=== PATIENT | male | born 1950 ===

== ENCOUNTER 2023-06-10 07:38 | Outpatient (CLI) | payer MEDICARE, OTHER ==
--- NOTE | 2023-06-10 13:31 | XRAY Report ---
PROCEDURE: Chest 2 View X-Ray INDICATIONS: CHRONIC COUGH TECHNIQUE: 2 views of the chest were acquired. COMPARISON: None. FINDINGS: Surgical changes and devices: None. Lungs and pleura: No pleural effusions or pneumothorax. Lungs are clear. Mediastinum: Mediastinal contours appear normal. Heart size is normal. Bones and chest wall: No suspicious bony lesions. Overlying soft tissues appear unremarkable. IMPRESSION: No acute cardiopulmonary process. Reviewed by: Rubina Tavarez MD on 06/10/2023 1:30 PM PDT Approved by: Rubina Tavarez MD on 06/10/2023 1:30 PM PDT Station ID: [id number]
[2023-06-10 15:08] LABS: BASOPHILS % (AUTO) 0.9 %; EOSINOPHILS # (AUTO) 0.3 10^3/uL (0.0-0.7); HCT - HEMATOCRIT 49.3 % (42.0-52.0); HGB - HEMOGLOBIN 16.1 g/dL (14.0-18.0); LYMPHOCYTES # (AUTO) 1.6 10^3/uL (1.5-3.5); LYMPHOCYTES % (AUTO) 37.2 %; MEAN CORPUSCULAR HEMOGLOBIN 30.7 pg (27.0-31.0); MEAN CORPUSCULAR HGB CONC 32.7 g/dL (32.0-36.0); MEAN CORPUSCULAR VOLUME 94.1 fL (80.0-94.0); MEAN PLATELET VOLUME 10.8 fL (7.4-11.4); MONOCYTES # (AUTO) 0.5 10^3/uL (0.0-1.0); MONOCYTES % (AUTO) 11.6 %; NEUTROPHILS # (AUTO) 1.9 10^3/uL (1.5-6.6); NEUTROPHILS % (AUTO) 44.1 %; PLT - PLATELET COUNT 236 10^3/uL (130-450); RED BLOOD COUNT 5.24 10^6/uL (4.70-6.10); RED CELL DISTRIBUTION WIDTH 13.2 % (12.0-15.0); WHITE BLOOD COUNT 4.3 x10^3/uL (4.8-10.8)
[2023-06-10 15:09] LABS: ESTIMATED AVERAGE GLUCOSE 117 mg/dL (70-100); HEMOGLOBIN A1c% 5.7 % (4.27-6.07)
[2023-06-10 15:27] LABS: ALBUMIN/GLOBULIN RATIO 1.4 (1.0-2.2); ALKALINE PHOSPHATASE 97 IU/L (42-121); ALT ALANINE AMINOTRANSFERASE 13 IU/L (10-60); AST ASPARTATE AMINOTRANSFERASE 18 IU/L (10-42); BILIRUBIN,TOTAL 0.6 mg/dL (0.2-1.0); BUN - BLOOD UREA NITROGEN 20 mg/dL (6-20); CALCIUM 9.1 mg/dL (8.5-10.3); CARBON DIOXIDE - CO2 30 mmol/L (21-32); CHLORIDE 105 mmol/L (101-111); CHOL/HDL RATIO 4.1 (<5.0); CHOLESTEROL 232 mg/dL; CREATININE 0.9 mg/dL (0.6-1.3); GFR - MDRD 82 (>89); GLUCOSE 91 mg/dL (74-104); HDL CHOLESTEROL 56 mg/dL; LDL CHOLESTEROL,CALCULATED 144 mg/dL; LDL/HDL RATIO 2.6 (<3.6); POTASSIUM 4.2 mmol/L (3.5-4.5); SODIUM 138 mmol/L (135-145); TOTAL PROTEIN 6.8 g/dL (6.4-8.9); TRIGLYCERIDES 162 mg/dL (48-352); VLDL CHOLESTEROL 32 mg/dL
== END 2023-06-10 07:39 | disposition home or self-care (01) ==
LOC: DI.S 07:38
PROVIDERS: ATTEND Internal Medicine
DX: R09.82 Postnasal drip (principal); R05.3 Chronic cough; R35.1 Nocturia; Z13.220 Encounter for screening for lipoid disorders; Z13.1 Encounter for screening for diabetes mellitus; G47.30 Sleep apnea, unspecified
CPT/HCPCS: 36415; 80053; 80061; 83036; 83721; 84153; 85025

== ENCOUNTER 2023-07-06 14:44 | Outpatient (CLI) | payer MEDICARE, OTHER ==
--- NOTE | 2023-07-06 15:45 | Sleep Patient Instructions ---
Sleep Center Visit Summary - Patient Visit Information Reason for Visit: Initial consult for evaluation of sleep disordered breathing and other sleep issues. - Patient Instructions Instructions Attached: Sleep Study, Sleep Clinic Visit, Sleep Study Home Monitor Additional Instructions: You will be completing a sleep study, either an in-lab polysomnography (PSG) or home sleep study (HST). You will follow-up in the sleep care office after the sleep study is completed to hear the results and talk about therapy, if needed. You will be called by our office staff to schedule this appointment, but you may contact us with any questions. - Clinic Information Contact: [facility] [address] [place] [address] [email or web address] T: [phone]
--- NOTE | 2023-07-06 15:50 | SLEEP CARE CONSULTATION ---
Information from patient questionnaire entered by Alondra Frey. I have reviewed and concur with the information entered by Alondra Frey. This document represents the service I personally performed and the decisions made by me, Karen Sutton ARNP. History of Present Illness Service Date and Time: 07/06/2023 1444 Reason for Visit: New patient Chief Complaint: reports: Unrefreshed sleep, Excessive daytime sleepiness, Observed pauses in breathing, Fatigue, Frequent awakenings at night Date of Onset: 6YRS Usual bedtime: 10-11PM Time it takes to fall asleep: LESS THAN 5MINS Snores at night: No (don't know) Observed to quit breathing while asleep: Yes Number of times waking at night: 2-4 Reasons for waking at night: reports: Gasping for air, Bathroom, Other (HEART RACING). denies: Choking, Snoring Toss, Turn, or Twitch while sleeping: Yes Recalls having dreams: Yes Usually gets out of bed at: 7-8AM Feels refreshed in the morning: No Morning headache: No Sleepy or fatigued during the day: Yes Ever fallen asleep while driving: Yes (drowsy driving; no accidents) Takes day naps: Yes (4-5 times a week; 15-60 minutes, sometimes 90 mins) Dreams during day naps: Yes Prior sleep studies: No Additional HPI information: I had the pleasure of seeing BIJAL LEARNED today regarding the possibility of him having a sleep disorder. His current complaints are unrefreshed sleep, excessive daytime sleepiness, observed pauses in breathing, fatigue and frequent night awakenings. He states a friend notice 3-4 years ago told him that he stopped breathing for 30 seconds and gasping right after. He states he thinks he sleeps deeply, because he is always dreaming when he wakes up. He has not been told that he snores. He is single and sleeps alone. He states he is tired through the day. He does not wake up feeling rested. He states that sometimes when he wakes up at night his heart seems to be "racing". He saw a street light servicer supervisor who told him he was fine. - Parasomnia Symptoms Ever been unable to move upon waking from sleep: No Walks in sleep: No Talks in sleep: Yes (when younger) Ever acted out dreams in sleep: No Ever felt weak in the knees when startled or emotional: No Bothered by creepy, crawly, restless sensations in legs: No Problems with memory or concentration: Yes (difficult to remember names at times; concentration worse when tired) Subjective Initial [place] Sleepiness Scale score: 11 (07/01/23) Past Medical History Past Medical History: reports: Other (rotator cuff surgery in 2004) Social History The patient's occupation is a RE. Patient is Single and lives in [place]. Have you smoked in the past 12 months: No Alcohol use: Yes Alcohol amount and frequency: 1 GLASS 2-3TIMES PER year Caffeine use: No Family History Family history of sleep disordered breathing: No Allergies and Home Medications Known drug allergies: No Drug allergies reviewed: Yes Home medication list reviewed: Yes Allergy and home medication list: Home Medications Medication Instructions Recorded Confirmed Last Taken Type Ascorbic Acid/Ascorbate Sodium See Rx Instructions .ROUTE .COMPLEX 07/05/23 07/06/23 Unknown History [Vitamin C 500 mg Tablet Chew] Cholecalciferol (Vitamin D3) See Rx Instructions .ROUTE .COMPLEX 07/05/23 07/06/23 Unknown History [Vitamin D3] Zinc Gluconate [Zinc] See Rx Instructions .ROUTE .COMPLEX 07/05/23 07/06/23 Unknown History Review of Systems Weight gain over past 5 years: 3-4 Cardiovascular: reports: palpitations, irregular heart rate or pulse. denies: high blood pressure Respiratory: reports: shortness of breath, chronic cough Gastrointestinal: denies: heartburn Urinary: reports: frequency, urgency Neurological: denies: headaches Psychiatric: denies: anxiety, depression Ear/Nose/Throat: reports: wisdom teeth removed. denies: tonsillectomy Endocrine: reports: sluggishness, increased urination. denies: thyroid disease Musculoskeletal: reports: back pain Immunologic: denies: allergies to food or environment Physical Exam Vital signs obtained and entered by: ALONDRA Jeffrey MA Blood Pressure: 120/76 (07/06/23) Cuff size: regular Heart Rate: 71 O2 Saturation: 98 Height: 5 ft 10.5 in Weight: 175 lb Body Mass Index: 24.7 BMI Classification: Normal Neck circumference: 15.5 Mouth and throat: narrow oropharynx Soft palate: long Hard palate: normal Uvula: normal Uvula visualization: 25% Mallampati Class III Tongue: normal in size Tonsils: small Neck: normal w/o lymphadenopathy or thyromegaly Heart: regular rate and rhythm Lungs: clear bilaterally Impression and Plan 1. Suspected Obstructive Sleep Apnea-Hypopnea Syndrome, as suggested by a history of observed cessation of breath while asleep, gasping or choking in sleep, frequent awakening during the night, unrefreshed sleep, cognitive impairment, and excessive daytime sleepiness. Narrow oropharynx and obesity are common predisposing factors for obstructive sleep apnea-hypopnea syndrome. I recommend proceeding to polysomnography to confirm the diagnosis and to assess severity. If the patient has significant sleep disordered breathing, a manual CPAP titration study will also be performed to find the optimal treatment pressure. I informed the patient of what the sleep studies involve and after s ome discussion, obtained agreement to proceed. The pathophysiology of obstructive sleep apnea-hypopnea syndrome was discussed with the patient and health risks of cardiovascular and cerebrovascular disease if not treated. Risks of drowsy driving discussed in detail and patient advised to avoid long distance driving and to gizzard puller at the first sign of drowsiness. Patient agreed to plan. * Schedule polysomnography. * Avoid long distance driving or driving when feeling sleepy. * Avoid alcohol, sedative and muscle relaxant around bedtime. * Review instructions provided by trained office staff on how to prepare for the sleep study. * Return for follow-up after sleep study completed. Visit Type: In Office Time Spent with Patient (minutes): 33 Provider Statement: I spent 100% of the Face to Face Visit with the patient with greater than 50% spent counseling the patient and coordination of care.
[2023-07-06 15:51] VITALS: BP 120/76; O2SAT 98
== END 2023-07-06 14:45 | disposition home or self-care (01) ==
LOC: SC 14:44
PROVIDERS: ATTEND Nurse Practitioner Family
DX: G47.10 Hypersomnia, unspecified (principal); R53.83 Other fatigue; G47.8 Other sleep disorders; R06.81 Apnea, not elsewhere classified
CPT/HCPCS: 99203; G0463; 99212

== ENCOUNTER 2023-08-26 20:27 | Outpatient (CLI) | payer MEDICARE, OTHER | END 2023-08-26 20:28 | disposition home or self-care (01) | LOC: SC 20:27 | PROVIDERS: ATTEND Nurse Practitioner Family | DX: G47.33 Obstructive sleep apnea (adult) (pediatric) (principal) | CPT/HCPCS: 95810 ==

== ENCOUNTER 2023-09-02 09:00 | Outpatient (CLI) | payer MEDICARE, OTHER ==
--- NOTE | 2023-09-02 09:15 | SLEEP CARE CONSULTATION ---
Information from patient questionnaire entered by Sheridan Wade. I have reviewed and concur with the information entered by Sheridan Wade. This document represents the service I personally performed and the decisions made by , Karen Sutton ARNP. History of Present Illness Service Date and Time: 09/02/2023 0900 Initial [place] Sleepiness Scale score: 11 (07/01/23) Current [place] Sleepiness Scale score: 13 Additional HPI information: BIJAL GRIFFITHS returns via video appointment for follow up and results of the recently performed polysomnography. The sleep study showed very severe obstructive sleep apnea with an average AHI of 65.1 and nick oxygen saturation of 86%. I explained the pathophysiology behind obstructive sleep apnea. We then spent quite a bit of time discussing different treatment options. For mild obstructive sleep apnea, surgery and oral appliance are alternatives to nasal CPAP therapy but in moderate or severe cases, nasal CPAP is the most effective and reliable treatment. I reviewed the impact of weight changes on sleep apnea and strongly recommended losing weight. After some discussion, the patient opted to go with the nasal CPAP therapy. Nasal autoCPAP set at 5-20 cmH20 will be ordered with rationale explained. A manual titration study will be ordered if unable to find optimal pressure with office adjustments. I explained how CPAP machine works and what to expect when using the machine. Using CPAP every night in order to get used to it was emphasized. Patient advised to put CPAP mask on before getting into bed so as not to fall asleep without CPAP. To assist acclimation to CPAP use, it could also be used for a short time during day while reading or watching TV. The patient was instructed to call the CPAP supplier to discuss any mechanical problem that may occur. If the mask given is uncomfortable or is difficult to keep on through the night even with adjustment, contact the CPAP supplier as many will replace with another mask style if notified before 30 days. If snoring or perceives is not getting enough air or too much air from the machine, notify this office. Patient counseled not drink alcohol less than 4 hours before bedtime as it can increase snoring and apnea. Patient was cautioned about risks of drowsy driving until sleepiness symptoms resolve. Patient denies drowsy driving. Sleep Study - Results Prior sleep studies: No Polysomnography/Home Sleep Study results: IMPRESSION: The quality of the study is good. The patient had poor sleep efficiency due to prolonged awakenings during the night. The sleep architecture was abnormal for sleep fragmentation and lack of REM sleep. Respiratory monitoring showed very severe obstructive sleep apnea-hypopnea (AHI = 65.1) associated with frequent arousals, oxyhemoglobin desaturation and mild hypoxia (nick oxygen saturation of 86%). The patient only slept supine during this study (supine AHI = 65.1; non-supine = 0.00). Snore was moderate in intensity. There was no significant periodic leg movement of sleep. Cardiac rhythm was normal sinus rhythm without significant arrhythmia. No abnormal behavior (parasomnia) observed during the night. Allergies and Home Medications Known drug allergies: No Drug allergies reviewed: Yes Home medication list reviewed: Yes (no changes) Allergy and home medication list: Allergies No Known Drug Allergies Allergy Review of Systems Review of systems same as previous: Yes (no changes) Physical Exam Vital signs obtained and entered by: Karen Arnold NP Height: 5 ft 10.5 in Weight: 175 lb (per pt) Body Mass Index: 24.7 BMI Classification: Normal Impression and Plan 1. Obstructive Sleep Apnea-Hypopnea Syndrome, very severe, with lowest oxygen saturation of 86%. Obviously this is the cause of the patients symptoms of unrefreshed sleep, and excessive daytime sleepiness. As mentioned above, the patient will be started on nasal autoCPAP therapy with pressure set at 5-20 cmH2 O. A manual titration study will be completed if unable to find optimal treatment pressure with office adjustments. Compliance guidelines also reviewed. A copy of compliance guidelines will be given for reference at check out. 2. Hypoxemia, mild, with a nick oxygen saturation of 86% and 2.8 minutes spent under 90%. The baseline oxygen saturation was normal with an average oxygen saturation of 92%. * Nasal auto CPAP therapy, pressure at 5-20 cm H2O. * Attempt to lose weight. * Avoid alcohol consumption near bedtime. * Avoid supine sleep until using CPAP. * The patient is again cautioned about driving until sleepiness completely resolves. * Return one month after CPAP obtained. I will assess response to therapy and compliance at that time. Counseling Topics: Weight control Prescriptions: Auto CPAP Visit Type: Telehealth Video Video Type: Doximity Patient Location: Home Location of Provider: Office Patient agrees and consents to this telehealth visit type: Yes Patient agrees to have their insurance billed: Yes Time Spent with Patient (minutes): 17 Provider Statement: I spent 100% of the Telehealth Video Call with the patient with greater than 50% spent counseling the patient and coordination of care.
== END 2023-09-02 09:01 | disposition home or self-care (01) ==
LOC: SC 09:00
PROVIDERS: ATTEND Nurse Practitioner Family
DX: G47.33 Obstructive sleep apnea (adult) (pediatric) (principal); R09.02 Hypoxemia

== ENCOUNTER 2023-12-14 11:17 | Outpatient (CLI) | payer MEDICARE, OTHER ==
--- NOTE | 2023-12-14 12:03 | Sleep Patient Instructions ---
Sleep Center Visit Summary - Patient Visit Information Reason for Visit: First compliance followup - Patient Instructions Additional Instructions: You were here for follow up of CPAP therapy. You will be continued on CPAP therapy with pressure at 5-7 cmH2O. Please let us know if the pressure change is uncomfortable and we can make further adjustments of the pressure. You should follow up with sleep care in 1-2 months. You may contact us sooner for any questions or concerns. - Clinic Information Contact: [facility] [address] [place] [id number] [email or web address] T: [phone]
--- NOTE | 2023-12-14 12:10 | SLEEP CARE CONSULTATION ---
Information from patient questionnaire entered by Alondra Frey. I have reviewed and concur with the information entered by Alondra Frey. This document represents the service I personally performed and the decisions made by me, Karen Sutton ARNP. History of Present Illness Service Date and Time: 12/14/2023 1117 Previous diagnosis: Very Severe, Obstructive Sleep Apnea-Hypopnea Syndrome AHI: 65.1 (08/26/2023) Reason for follow up: first compliance Equipment type: CPAP (RESMED Airsense 09/2023) Equipment obtained from: [employer] (getting supplies) Mask style: Nasal Mask brand: Respironics (Dreamwear, medium cushion) Backup mask available: No (will keep old mask when replaced) Last cushion change: about a month or so Prior sleep studies: No Type of Sleep Study: Polysomnography (08/26/2023) HPI additional information: BIJAL GRIFFITHS was diagnosed to have very severe, AHI 65.1, obstructive sleep apnea-hypopnea syndrome and returned today for CPAP therapy first compliance follow-up. Sleep Study - Results Prior sleep studies: No CPAP Compliance Data - Data Reviewed with Patient Average duration of nightly device use: 3 HRS 58 MINS Compliance rate %: 70 (10/16/23-11/14/23; 29/30 days used; last 30 days 73%) Current pressure setting (cmH2O): 5-9 (median 7.3, avg 9.2, max 9.7) Average residual AHI: 13.4 Central apnea: 7.8 Obstructive apnea: 2 Hypopnea: 3.2 Average large leak: 0 L/min Subjective Patient concerns: reports: condensation in mask/hose (once in a while), other (having difficulty using the mask all night long). denies: aerophagia, mask discomfort, air blowing in eyes, mask leak noise, nasal congestion, dry mouth, nose, throat, epistaxis Current pressure setting perceived as: too high (maybe) On therapy, patient: reports: other (not feeling he is sleeping well or more rested overall). denies: drowsiness while driving Initial [place] Sleepiness Scale score: 11 (07/01/23) Current [place] Sleepiness Scale score: 10 (12/14/23) Allergies and Home Medications Known drug allergies: No Drug allergies reviewed: Yes Home medication list reviewed: Yes (Fish oil) Allergy and home medication list: Allergies No Known Drug Allergies Allergy (Verified 12/12/23 11:15) Review of Systems Review of systems same as previous: No (BENEN LESIONREMOVEDFROM FINGER) Physical Exam Vital signs obtained and entered by: ALONDRA Jeffrey MA Blood Pressure: 124/79 (LEFT ARM) Cuff size: regular Heart Rate: 67 O2 Saturation: 96 Height: 5 ft 10.5 in Weight: 180 lb 3.2 oz Body Mass Index: 25.4 BMI Classification: Overweight Impression and Plan 1. Obstructive Sleep Apnea-Hypopnea Syndrome, very severe, with good treatment compliance and fair apnea control with elevated residual AHI. On CPAP therapy, the patient has better sleep quality and is more rested overall. His residual AHI is still elevated with central index at 7.8, obstructive index at 2 and hypopnea index at 3.2. The average large leak is at 0 L/minute. He also states that he will wear the mask when he is awake, sometimes up to an hour which may account for elevated hypopnea and central indexes. The patients pressure will be changed to autoCPAP 5-7 cmH20 for elevation of residual AHI. I will reevaluate at next visit. Patient advised to contact me if pressure change is uncomfortable so that it can be adjusted. Goals for apnea control discussed. Patient's apnea severity and rationale for treatment to reduce apnea, improve sleep quality and reduce cardiovascular and cerebrovascular events was reviewed. * Change auto CPAP pressure to 5-7 cmH2O * Notify me if snoring with mask or feeling that the pressure is too much or too little * Call this office if any problems using CPAP * Return for follow up in 1-2 months, or sooner if concerns arise Adjust device pressure to (cmH2O): 5-7 Counseling Topics: Spare mask Follow up with Sleep Care in: 1-2 months Visit Type: In Office Time Spent with Patient (minutes): 26 Provider Statement: I spent 100% of the Face to Face Visit with the patient with greater than 50% spent counseling the patient and coordination of care.
[2023-12-14 12:19] VITALS: BP 124/79; O2SAT 96
== END 2023-12-14 11:18 | disposition home or self-care (01) ==
LOC: SC 11:17
PROVIDERS: ATTEND Nurse Practitioner Family
DX: G47.33 Obstructive sleep apnea (adult) (pediatric) (principal); E66.3 Overweight; Z68.25 Body mass index [BMI] 25.0-25.9, adult
CPT/HCPCS: 99213; G0463; 99212

== ENCOUNTER 2024-02-14 10:57 | Outpatient (CLI) | payer MEDICARE, OTHER ==
--- NOTE | 2024-02-14 11:34 | Sleep Patient Instructions ---
Sleep Center Visit Summary - Patient Visit Information Reason for Visit: 2-month follow-up after pressure change - Patient Instructions Additional Instructions: You were here for follow up of CPAP therapy. You will be continued on CPAP therapy with pressure at 4-6 cmH2O. Please let us know if the pressure change is uncomfortable and we can make further adjustments of the pressure. You should follow up with sleep care in 1-2 months. You may contact us sooner for any questions or concerns. - Clinic Information Contact: [facility] [address] [place] [id number] [email or web address] T: [phone]
--- NOTE | 2024-02-14 11:41 | SLEEP CARE CONSULTATION ---
Information from patient questionnaire entered by Alondra Frey. I have reviewed and concur with the information entered by Alondra Frey. This document represents the service I personally performed and the decisions made by , Karen Sutton ARNP. History of Present Illness Service Date and Time: 02/14/2024 1057 Previous diagnosis: Very Severe, Obstructive Sleep Apnea-Hypopnea Syndrome AHI: 65.1 (08/26/2023) Reason for follow up: other (2 MONTH F/U) Equipment type: CPAP (RESMED Airsense 09/2023) Equipment obtained from: [employer] (getting supplies) Mask style: Nasal Backup mask available: Yes Last cushion change: less than month Prior sleep studies: No Type of Sleep Study: Polysomnography (08/26/2023) HPI additional information: BIJAL GRIFFITHS was diagnosed to have very severe, AHI 65.1, obstructive sleep apnea-hypopnea syndrome and returned today for CPAP therapy two month with pressure change follow-up. Sleep Study - Results Type of Sleep Study: Polysomnography (08/26/2023) Prior sleep studies: No CPAP Compliance Data - Data Reviewed with Patient Average duration of nightly device use: 4 HRS 3 MINS Compliance rate %: 68 (12/11/23-02/08/24; 58/60 days used used) Current pressure setting (cmH2O): 5-7 (avg 7) Average residual AHI: 7.5 Central apnea: 3.2 Obstructive apnea: 1.3 Hypopnea: 2 Average large leak: 0.2 L/min Subjective Missed days of use due to: reports: other (remove mask in middle of night from not being able to breathe easily) Patient concerns: denies: aerophagia, mask discomfort, air blowing in eyes, mask leak noise, condensation in mask/hose, nasal congestion, dry mouth, nose, throat, epistaxis Observed to snore while using device: No Current pressure setting perceived as: comfortable On therapy, patient: reports: other (not feeling much improvement). denies: drowsiness while driving Initial [place] Sleepiness Scale score: 11 (07/01/23) Current [place] Sleepiness Scale score: 9 (02/14/24) Allergies and Home Medications Known drug allergies: No Drug allergies reviewed: Yes Home medication list reviewed: Yes (no changes) Allergy and home medication list: Allergies No Known Drug Allergies Allergy (Verified 02/09/24 14:44) Review of Systems Review of systems same as previous: No (BENIGN LESSIONS ON FINGER REMOVED) Physical Exam Vital signs obtained and entered by: ALONDRA Jeffrey MA Blood Pressure: 135/63 (LEFT ARM) Cuff size: regular Heart Rate: 62 O2 Saturation: 98 Height: 5 ft 10.5 in Weight: 179 lb 12.8 oz Body Mass Index: 25.4 BMI Classification: Overweight Impression and Plan 1. Obstructive Sleep Apnea-Hypopnea Syndrome, very severe, with good treatment compliance and fair apnea control with mildly elevated residual AHI. On CPAP therapy, the patient has better sleep quality and is more rested overall. He is taking his mask off after a few hours of use. He thinks he is just not breathing well through the mask. He sleep on his sides usually and has a history of one side of his nose being clogged. He would like to try a nasal cushion that goes over his nose because he thinks he will be able to continue to breathe easier with a more open cushion. I fitted him with a DreamWisp, medium cushion, to try at home. He will let me know at follow up if this mask worked better for him. The patients pressure will be changed to autoCPAP 4-6 cmH20 for elevation of residual AHI. Patient advised to contact me if pressure change is uncomfortable so that it can be adjusted. Goals for apnea control discussed. Patient's apnea severity and rationale for treatment to reduce apnea, improve sleep quality and reduce cardiovascular and cerebrovascular events was reviewed. * Change auto CPAP pressure to 4-6 cmH2O * Notify me if snoring with mask or feeling that the pressure is too much or too little * Call this office if any problems using CPAP * Return for follow up in 1-2 months, or sooner if concerns arise Adjust device pressure to (cmH2O): 4-6 Counseling Topics: Spare mask Follow up with Sleep Care in: 1-2 months Visit Type: In Office Time Spent with Patient (minutes): 27 Provider Statement: I spent 100% of the Face to Face Visit with the patient with greater than 50% spent counseling the patient and coordination of care.
[2024-02-14 11:49] VITALS: BP 135/63; O2SAT 98
== END 2024-02-14 10:58 | disposition home or self-care (01) ==
LOC: SC 10:57
PROVIDERS: ATTEND Nurse Practitioner Family
DX: G47.33 Obstructive sleep apnea (adult) (pediatric) (principal)
CPT/HCPCS: 99213; G0463; 99212

== ENCOUNTER 2024-04-11 11:04 | Outpatient (CLI) | payer MEDICARE, OTHER ==
--- NOTE | 2024-04-11 11:54 | Sleep Patient Instructions ---
Sleep Center Visit Summary - Patient Visit Information Reason for Visit: 2-month CPAP follow-up - Patient Instructions Additional Instructions: You were here for follow up of CPAP therapy. You will be continued on CPAP therapy with pressure at 4-6 cmH2O. I am ordering another sleep study since last one had limited sleep time. You should follow up with sleep care after sleep study/HST. You may contact us sooner for any questions or concerns. - Clinic Information Contact: [facility] [address] [place] [address] [email or web address] T: [phone]
--- NOTE | 2024-04-11 12:03 | SLEEP CARE CONSULTATION ---
Information from patient questionnaire entered by Izzy Frey. I have reviewed and concur with the information entered by Izzy Frey. This document represents the service I personally performed and the decisions made by , Karen Sutton ARNP. History of Present Illness Service Date and Time: 04/11/2024 1104 Previous diagnosis: Very Severe, Obstructive Sleep Apnea-Hypopnea Syndrome AHI: 65.1 (08/26/2023) Reason for follow up: other (2 MONTH F/U) Equipment type: CPAP (RESMED Airsense 09/2023) Equipment obtained from: [employer] ([employer]) Mask style: Nasal Mask brand: Respironics (Dream Wisp) Backup mask available: No Prior sleep studies: No Type of Sleep Study: Polysomnography (08/26/2023) HPI additional information: AMBROSE GRIFFITHS was diagnosed to have very severe, AHI 65.1, obstructive sleep apnea-hypopnea syndrome and returned today for CPAP therapy two month follow-up. Sleep Study - Results Type of Sleep Study: Polysomnography (08/26/2023) Prior sleep studies: No CPAP Compliance Data - Data Reviewed with Patient Average duration of nightly device use: 1 HRS 10 MINS Compliance rate %: 0 (02/09/24-04/08/24; 59/60 days used) Current pressure setting (cmH2O): 4-6 Average residual AHI: 3.4 Central apnea: 1.5 Obstructive apnea: 0.4 Hypopnea: 1.4 Average large leak: 0.8 L/min Subjective Missed days of use due to: reports: other (taking mask off after an hour of use; unable to sleep with mask on) Patient concerns: reports: mask discomfort (unconciously removing mask during the night). denies: aerophagia, air blowing in eyes, mask leak noise, condensation in mask/hose, nasal congestion, dry mouth, nose, throat, epistaxis Observed to snore while using device: No Current pressure setting perceived as: comfortable On therapy, patient: reports: more rested overall. denies: drowsiness while driving Initial Hannibal Sleepiness Scale score: 11 (07/01/23) Current Hannibal Sleepiness Scale score: 9 (04/11/24) Allergies and Home Medications Known drug allergies: No Drug allergies reviewed: Yes Home medication list reviewed: Yes (no changes) Allergy and home medication list: Allergies No Known Drug Allergies Allergy (Verified 04/09/24 12:40) Review of Systems Review of systems same as previous: Yes (NO CHANGE) Physical Exam Vital signs obtained and entered by: IZZY Jeffrey MA Blood Pressure: 131/83 (RIGHT ARM) Cuff size: regular Heart Rate: 65 O2 Saturation: 97 Height: 5 ft 10.5 in Weight: 179 lb 6.4 oz Body Mass Index: 25.3 BMI Classification: Overweight Impression and Plan 1. Obstructive Sleep Apnea-Hypopnea Syndrome, very severe, with poor treatment compliance and good apnea control. Ambrose does feel like he is overall more rested when he is able to keep the mask on but he cannot keep the mask on for more than an hour. Sometimes it is not even that long because he just cannot get comfortable with it and he cannot fall asleep with the mask on so he will take it off. His original sleep study did show that he had around 2.5 hours of his recorded sleep, poor sleep efficiency. He does not feel it was a good representation of his sleep. I would like to get another sleep study that was more accurate and reflected his usual sleep pattern. I am going to see if we can get a home study and encouraged him to sleep both on his back and his sides to get a more accurate result. He also asked about seeing an ENT specialist for surgical options for his sleep apnea. I advised him to see his PCP for a referral, so he can get more options. He voiced agreement. Patient's apnea severity and rationale for treatment to reduce apnea, improve sleep quality and reduce cardiovascular and cerebrovascular events was reviewed. 2. Overweight, minimal. Currently patients BMI is 25.3. Obesity increases the risk of apnea, CPAP pressure requirements and overall health risks especially cardiovascular and diabetes. Thus patient is advised to maintain a healthy weight. * Continue auto CPAP pressure at 4-6 cmH2O * repeat HST * Notify me if snoring with mask or feeling that the pressure is too much or too little * Call this office if any problems using CPAP * Return for follow up in 1-2 months, or sooner if concerns arise Continue with device pressure at (cmH2O): 4-6 Follow up with Sleep Care in: other (after sleep study) Plan: PSG and follow up Visit Type: In Office Time Spent with Patient (minutes): 29 Provider Statement: I spent 100% of the Face to Face Visit with the patient with greater than 50% spent counseling the patient and coordination of care.
[2024-04-11 12:04] VITALS: BP 131/83; O2SAT 97
== END 2024-04-11 11:05 | disposition home or self-care (01) ==
LOC: SC 11:04
PROVIDERS: ATTEND Nurse Practitioner Family
DX: G47.33 Obstructive sleep apnea (adult) (pediatric) (principal); E66.3 Overweight; Z68.25 Body mass index [BMI] 25.0-25.9, adult
CPT/HCPCS: 99213; G0463; 99212

== ENCOUNTER 2024-04-25 12:30 | Outpatient (CLI) | payer MEDICARE, OTHER | END 2024-04-25 12:31 | disposition home or self-care (01) | LOC: SC 12:30 | PROVIDERS: ATTEND Nurse Practitioner Family | DX: G47.33 Obstructive sleep apnea (adult) (pediatric) (principal); R09.02 Hypoxemia | CPT/HCPCS: G0399 ×2; 95806 ==

== ENCOUNTER 2024-05-15 15:16 | Outpatient (CLI) | payer MEDICARE, OTHER ==
--- NOTE | 2024-05-15 15:51 | Sleep Patient Instructions ---
Sleep Center Visit Summary - Patient Visit Information Reason for Visit: Sleep study follow-up - Patient Instructions Additional Instructions: You were here for follow up of sleep study which showed moderate obstructive sleep apnea with an average AHI of 29.6. You will be continued on CPAP therapy with pressure at 4-6 cmH2O. You should follow up with sleep care in 1-2 months. You may contact us sooner for any questions or concerns. - Clinic Information Contact: [facility] [address] [place] [id number] [email or web address] T: [phone]
--- NOTE | 2024-05-15 15:57 | SLEEP CARE CONSULTATION ---
Information from patient questionnaire entered by Sheridan Wade. I have reviewed and concur with the information entered by Sheridan Wade. This document represents the service I personally performed and the decisions made by , Karen Sutton ARNP. History of Present Illness Service Date and Time: 05/15/2024 1516 Initial Superior Sleepiness Scale score: 11 (07/01/23) Current Superior Sleepiness Scale score: 9 (in 2023) Additional HPI information: BIJAL GRIFFITHS returns for follow up and results of the recently performed home sleep study. The sleep study done on 04/25/2024 showed moderate obstructive sleep apnea with an average AHI of 29.6 and nick oxygen saturation of 85%. I explained the pathophysiology behind obstructive sleep apnea. We then spent quite a bit of time discussing different treatment options. For mild obstruc tive sleep apnea, surgery and oral appliance are alternatives to nasal CPAP therapy but in moderate or severe cases, nasal CPAP is the most effective and reliable treatment. The patient will continue with the nasal CPAP therapy set at 4-6 cmH20. Sleep Study - Results Type of Sleep Study: Home sleep study (08/26/2023) Prior sleep studies: Yes Year and Where: 2022 [facility] Polysomnography/Home Sleep Study results: Physician Impression: The quality of the study is good. The length of the study is adequate (> 240 minutes). Please also see the tabulated and graphic data. 1. Obstructive Sleep Apnea-Hypopnea (ICD-10 G47.33), moderate, with an AHI of 29.6/hr and nick SaO2 of 85%. During the study, the patient had 208 apneas (208 obstructive, 0 central, 0 mixed) and 35 hypopneas. The longest episode lasted 85.5 seconds. The respiratory events occurred more frequently during supine sleep (supine AHI was 50.9 and non-supine, 14.95). 2. Hypoxemia (ICD-10 R09.02), mild, with the lowest oxygen saturation of 85 % and 23.5 minutes with SaO2 under 90%. Baseline oxygen saturation was normal (Average oxygen saturation was 94%). Allergies and Home Medications Known drug allergies: No Drug allergies reviewed: Yes Home medication list reviewed: Yes (no changes) Allergy and home medication list: Allergies No Known Drug Allergies Allergy (Verified 04/11/24 11:28) Review of Systems Review of systems same as previous: Yes (no changes) Physical Exam Vital signs obtained and entered by: Karen Arnold NP Blood Pressure: 111/72 Cuff size: long (right arm) Heart Rate: 65 O2 Saturation: 98 Height: 5 ft 10.5 in Weight: 179 lb Body Mass Index: 25.3 BMI Classification: Overweight Impression and Plan 1. Obstructive Sleep Apnea-Hypopnea Syndrome, moderate, with lowest oxygen saturation of 85%. He is here to review results of last home study to verify diagnosis and severity. He felt this study was much more reflective of a normal night. He does continue to try to use his CPAP but only manages to keep it on about an hour. He will fall asleep with it on on his back and then will wake up and not be able to go back to sleep. He will then remove the mask and go to sleep on his stomach. He has been getting more sleep this way and prefers to sleep on his stomach. He does get pain from his back when sleeping on his sides. After some discussion and talking about even doing positional therapy with an oral appliance, patient decides to continue to try using the CPAP and starting out sleeping on his stomach with the mask on. He is hoping that he might be able to fall asleep and stay asleep with the mask on in this position. I think this is a reasonable way forward and we will recheck how he is doing in 1 to 2 months. Patient's apnea severity and rationale for treatment to reduce apnea, improve sleep quality and reduce cardiovascular and cerebrovascular events was reviewed. I also reviewed the benefit of consistent device use of CPAP for overall health benefits. 2. Hypoxemia, mild, with a nick oxygen saturation of 85% and 23.5 minutes spent under 90%. The baseline oxygen saturation was normal with an average oxygen saturation of 94%. * Continue auto CPAP pressure at 4-6 cmH2O * Notify me if snoring with mask or feeling that the pressure is too much or too little * Attempt to lose weight * Call this office if any problems using CPAP * Return for follow up in 1-2 months, or sooner if concerns arise Follow up with Sleep Care in: 1-2 months Visit Type: In Office Time Spent with Patient (minutes): 26 Provider Statement: I spent 100% of the Face to Face Visit with the patient with greater than 50% spent counseling the patient and coordination of care.
[2024-05-15 15:59] VITALS: BP 111/72; O2SAT 98
== END 2024-05-15 15:17 | disposition home or self-care (01) ==
LOC: SC 15:16
PROVIDERS: ATTEND Nurse Practitioner Family
DX: G47.33 Obstructive sleep apnea (adult) (pediatric) (principal); R09.02 Hypoxemia; E66.3 Overweight; Z68.25 Body mass index [BMI] 25.0-25.9, adult
CPT/HCPCS: 99213; G0463; 99212